=== PATIENT | female | born 2000 | race Caucasian/White ===

== ENCOUNTER 2021-05-15 13:00 | Emergency (ER) | payer OTHER ==
[~2021-05-15] VITALS: Ht 154.9 cm; Wt 54.4 kg
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
[2021-05-15 14:28] VITALS: BP 132/87
== END 2021-05-15 14:22 | disposition home or self-care (01) ==
LOC: EDUNIT# 13:00 → ER FS 13:02
DX: S06.0X9A Concussion with loss of consciousness of unspecified duration, initial encounter (principal); Z72.0 Tobacco use; V89.2XXA Person injured in unspecified motor-vehicle accident, traffic, initial encounter
CPT/HCPCS: 70450